=== PATIENT | female | born 1970 | race Caucasian/White ===

== ENCOUNTER → 2016-10-23 | Outpatient (CLI) | payer OTHER ==
--- NOTE | 2016-10-28 12:24 | RSPPFT ---
DATE OF PROCEDURE: 10/23/16 COMMENTS: Spirometry shows FVC of 3.1 at 93% of predicted, FEV1 of 1.7 at 67%, FEV1/FVC ratio is decreased. Flow is decreased at FEF 25, FEF 50, FEF 75 and FEF 25-75.There is no response after bronchodilator treatment. Lung volumes show residual volume is increased. TLC is increased. Diffusion capacity is decreased. Flow volume loop indicates an obstructive pattern. IMPRESSION: 1. Moderately severe obstructive lung disease. 2. No response after bronchodilator treatment. 3. Lung volumes show hyperinflation and air trapping. 4. There is a mild decrease in diffusion capacity.
== END ==
LOC: HRSP 10:01
PROVIDERS: ATTEND Specialist
DX: R06.00 Dyspnea, unspecified (principal)
CPT/HCPCS: 94060; 94726; 94729